=== PATIENT | male | born 1930 | race Caucasian/White ===

== ENCOUNTER 2016-11-26 07:50 | Observation (INO) | payer MEDICARE, OTHER ==
[~2016-11-26] VITALS: Ht 175.3 cm; Wt 98.3 kg
--- NOTE | ~2016-11-26 | ER ---
PATIENT'S NAME: UNA QUACH [facility] AGE: 86 Y [address] ROOM: [place] [address] LOCATION: G3 ADMIT DATE: 11/26/2016 ER/Outpatient Report DISCHARGE DATE: FAMILY PHYSICIAN: Krystina Bar MD ATTENDING PHYSICIAN: Aaron Dueñas Time of Arrival: 0750 hours. Time of Evaluation: 0803 hours. IDENTIFICATION: An 86-year-old male. CHIEF COMPLAINT: Right foot pain. HISTORY OF PRESENT ILLNESS: The patient is an 86-year-old male, who tripped over a curb yesterday injuring his right foot. He scraped his right elbow but sustained no other injuries. He did not hit his head. No loss of consciousness. No back or neck pain other than his usual chronic neck pain. No other problems or concerns. He was not lightheaded or dizzy. This was not a syncopal episode. ALLERGIES: NO KNOWN DRUG ALLERGIES. CURRENT MEDICATIONS: 1. Furosemide 40 mg daily. 2. Lisinopril 20 mg daily. 3. Potassium 10 mEq 2 b.i.d. 4. Levothyroxine 200 mcg daily. 5. Rosuvastatin 20 mg daily. 6. Warfarin 2.5 mg 6 days a week, one full tablet on Tuesday, Tuesday, Tuesday, Tuesday; half a tablet on Tuesday, Tuesday, . 7. Metoprolol 50 mg half tablet daily. 8. Finasteride 5 mg daily. 9. Omeprazole 20 mg daily. 10. Metolazone 5 mg on Tuesday, Tuesday, Tuesday. 11. Allopurinol 300 mg daily. 12. Ambien 5 mg at h.s. 13. Melatonin 10 mg 2 equate pain pills. 14. Tramadol as needed. 15. Hydrocodone as needed. MEDICAL PROBLEMS: History of diverticulitis; chronic atrial fibrillation, on chronic PATIENT'S NAME: UNA QUACH [facility] AGE: 86 Y [address] ROOM: [place] [address] LOCATION: [facility] ADMIT DATE: 11/26/2016 ER/Outpatient Report DISCHARGE DATE: FAMILY PHYSICIAN: Krystina Bar MD ATTENDING PHYSICIAN: Aaron Dueñas anticoagulation; coronary artery disease; congestive diastolic heart failure; cataract; gastroesophageal reflux disease; hypertension; hypothyroidism; macular degeneration; chronic kidney disease, left leg neuropathy, and possible sleep apnea. PRIOR SURGERIES: Colonoscopy; CABG; EGD; heart catheterization; laparoscopic cholecystectomy. SOCIAL HISTORY: The patient is . Lives here in [place]. He is retired. Tobacco use, denies. Alcohol use, denies. Drug use, denies. REVIEW OF SYSTEMS: All systems reviewed and negative other than what is noted in the HPI. PHYSICAL EXAMINATION: VITAL SIGNS: Height 5 feet 9 inches, weight 97.7 kg, blood pressure 134/76, pulse 84, respirations 18, temperature 97.2, and saturations 95% on room air. GENERAL: An 86-year-old male, in mild distress. HEENT: Unremarkable. LUNGS: Clear to auscultation. Breath sounds are equal. HEART: Regular rate and rhythm. ABDOMEN: Soft, nondistended, nontender. SKIN: [place], warm, and dry. No lesions or rashes noted. NEURO: No focal deficit. The patient has right pedal edema. He has no bruising or ecchymosis. He has a good distal pulses. Sensation is intact to light touch. He is tender to palpation over the metatarsals. No bony tenderness of his ankle or tib-fib. No knee pain or injury. He has a superficial abrasion on his right elbow. Left lower extremity, no bony tenderness. He is neurovascularly intact and good distal pulses. LABORATORY DATA AND X-RAYS: X-ray of his right ankle, no fracture or dislocation. Pending Radiology over- read. X-ray of his right foot reveals intra-articular fractures of the base of the second and fourth metatarsal, possibly the third metatarsal, and widening of the space between the first and second metatarsal suggestive of Lisfranc joint injury. Right tib-fib x-ray negative for acute fracture or dislocation. INR 3.27. CBC: Otherwise negative. Chemistry panel unremarkable for acute findings. IMPRESSION AND PLAN: 1. Right foot fractures with Lisfranc injury. 2. Chronic anticoagulation. 3. History of atrial fibrillation. a. I discussed this with Dr. Florez. A CAM boot was recommended. The PATIENT'S NAME: UNA QUACH [facility] AGE: 86 Y [address] ROOM: [address] [place], [place] [address] LOCATION: [facility] ADMIT DATE: 11/26/2016 ER/Outpatient Report DISCHARGE DATE: FAMILY PHYSICIAN: Krystina Bar MD ATTENDING PHYSICIAN: Aaron Dueñas A patient was placed in this. His son-in-law does not feel that he can manage at home with the weightbearing restrictions that Dr. Florez has outlined for toe-touch preferably no more than 50% at most max. He had trouble even using his walker today and getting here, so he will be admitted per [facility]. Dr. Dueñas is on-call for Dr. Bar with Dr. Florez providing consultation. 4. Right elbow abrasion. 5. History of right forearm staph infection. Currently using topical peroxide, bacitracin and Hibiclens per his daughter. 6. Coronary artery disease. 7. Hypothyroid. 8. All other medical problems per the past medical history. LEI POLK MD CAR/modl /[id number] d: 11/26/16 2244 t: 11/30/16 0912, OUTPATIENT REPORT
--- NOTE | ~2016-11-26 | CON ---
PATIENT'S NAME: UNA QUACH [facility] AGE: 86 Y [address] ROOM: [place] [address] LOCATION: G3N ADMIT DATE: 11/26/2016 Consultation DISCHARGE DATE: FAMILY PHYSICIAN: Krystina Bar MD ATTENDING PHYSICIAN: Aaron Dueñas DATE OF CONSULTATION: 11/26/2016 REFERRING PHYSICIAN: NELLIE MURRAY MD HISTORY OF PRESENT ILLNESS: Mr. Quach is an 86-year-old male who presented to the [facility] Emergency Room this morning with a chief complaint of right foot pain after he had tripped and fallen yesterday evening in his garage. He was able to bear weight after the incident, but he awoke this morning with persistent and progressive right foot pain and swelling. He localizes this to the mid foot. Pain is aggravated by activity and alleviated by rest. He denies associated numbness or paresthesias. SOCIAL HISTORY: The patient is well known to me based upon the fact that I cared for his . His has subsequently . He lives alone. Nonsmoker. MEDICATIONS ON ADMISSION: 1. Lasix. 2. Lisinopril. 3. Potassium supplement. 4. Levothyroxine. 5. Metoprolol. 6. Omeprazole. 7. Ambien. 8. Tylenol. 9. Tramadol. ALLERGIES: NO KNOWN DRUG ALLERGIES. PHYSICAL EXAMINATION: GENERAL: Alert, well-hydrated, well-nourished, pleasant, cooperative gentleman, who is in no distress. EXTREMITIES: He is wearing a CAM boot on the foot (as per my verbal orders after reviewing his radiographs when he was seen in the emergency room earlier today). The CAM boot is removed. Skin is intact throughout the right lower extremity. There is no calf swelling or tenderness. There is no swelling, tenderness, or deformity at the right knee or right nelson or right ankle. There is moderate swelling and significant focal tenderness throughout the PATIENT'S NAME: UNA QUACH [facility] AGE: 86 Y [address] ROOM: [place] [address] LOCATION: N ADMIT DATE: 11/26/2016 Consultation DISCHARGE DATE: FAMILY PHYSICIAN: Krystina Bar MD ATTENDING PHYSICIAN: Aaron Dueñas right mid foot. Skin is intact throughout the foot. Sensation to light touch is intact throughout the foot. 1+ dorsalis pedis pulse. RADIOGRAPHS: Three views of the right ankle demonstrate no fracture, no malalignment, no hardware, and no joint space narrowing. Right foot three view radiographic series demonstrate fractures at the base of the second and fourth metatarsals. There is no significant subluxation at the Lisfranc joints. The fractures at the bases of the second and fourth metatarsals appear minimally displaced. AP and lateral radiographs of the right tibia and fibula demonstrate mild joint space narrowing of the medial compartment of the knee. No fractures of the tibia or fibula noted. IMPRESSION: Multiple fractures at the bases of the right foot metatarsals (second, fourth, and probably the third also). No significant displacement thereof (minimally displaced Lisfranc fracture without significant subluxation). RECOMMENDATIONS: Immobilization in a CAM boot and abstinence of bearing full weight. I have cleared him for toe-touch weightbearing, but he should not bear weight through pain. Based upon the fact that he lives alone, I do not feel it is safe for him to return home. He is at risk for falling. Furthermore, he has demonstrated reluctance to comply with the recommended weightbearing restrictions. I have informed the patient that the injury carries a significant risk of developing posttraumatic arthritis (particularly it is not protected adequately to ensure maintenance of optimal alignment). No surgery is recommended presently. I have recommended the discharge planners see him for placement in a [facility] facility. MD EUNICE BRANCH/flaco /[id number] PATIENT'S NAME: UNA QUACH [facility] AGE: 86 Y [address] ROOM: [id number] [place], [place] [address] LOCATION: [facility] ADMIT DATE: 11/26/2016 Consultation DISCHARGE DATE: FAMILY PHYSICIAN: Krystina Bar MD ATTENDING PHYSICIAN: Aaron Dueñas CC: Aaron Dueñas MD d: 11/26/161999 t: 12/10/16 0750, CONSULTATION REPORT
--- NOTE | ~2016-11-26 | HP ---
PATIENT'S NAME: UNA QUACH [facility] AGE: 86 Y [address] ROOM: [place] [address] LOCATION: [facility] ADMIT DATE: 11/26/2016 History & Physical DISCHARGE DATE: 11/29/2016 FAMILY PHYSICIAN: Krystina Bar MD ATTENDING PHYSICIAN: Audi Dueñas DATE OF SERVICE: HISTORY OF PRESENT ILLNESS: This 86-year-old male tripped over a curb yesterday injuring his right foot, he has scraped his elbow, but really did not his head or sustained any other injuries. He denies any loss of consciousness. His workup in the emergency room was found to have a right foot fractures of the 2nd and 4th metatarsals and possibly the 3rd as well as the Lisfranc joint injury. He has a history of atrial fibrillation, is on Coumadin, but has not sustained any other issues. It is not felt that he was safe to be at home at this time; so, will be admitted for further observation. PAST MEDICAL HISTORY: Significant for heart failure with preserved ejection fraction, coronary artery disease, GERD, hypertension, hypothyroidism, macular degeneration, and chronic atrial fibrillation. PRIOR SURGERIES: He had a colonoscopy, CABG, EGD, heart catheterization, and lap vick. SOCIAL HISTORY: He is a former smoker. Uses seatbelt. Lives at home by himself. He was formerly in the [employer]. FAMILY HISTORY: Unremarkable. REVIEW OF SYSTEMS: Denies any chest pain, pressure, shortness of breath, orthopnea, or PND. PHYSICAL EXAMINATION: GENERAL: The patient is nontoxic-appearing male in no acute distress. VITAL SIGNS: His height is 5 feet, 9 inches, weight 97.7 kg, blood pressure 134/76, pulse 84, respirations 18, temperature 97.2, and O2 saturation 95% on room air. HEENT: Head: Normocephalic, atraumatic. Ears: TMs are clear and intact bilaterally. Nose patent. Throat clear. NECK: Supple without lymphadenopathy, JVD, thyromegaly, or bruits. HEART: Regular rate and rhythm without audible murmur. PATIENT'S NAME: UNA QUACH [facility] AGE: 86 Y [address] ROOM: [place] [address] LOCATION: [facility] ADMIT DATE: 11/26/2016 History & Physical DISCHARGE DATE: 11/29/2016 FAMILY PHYSICIAN: Krystina Bar MD ATTENDING PHYSICIAN: Audi Dueñas LUNGS: Clear to auscultation bilaterally with normal respiratory effort. ABDOMEN: Soft, nontender, nondistended. Bowel sounds are positive. There is no hepatosplenomegaly. No guarding or rebound. EXTREMITIES: Does have some right pedal edema. His pulses are intact. NEURO: No focal deficits. ASSESSMENT: 1. Right foot fractures with Lisfranc injury. 2. Chronic anticoagulation. 3. History of atrial fibrillation. 4. Coronary artery disease. 5. Hypothyroidism. 6. Gastroesophageal reflux disease. 7. Chronic heart failure with preserved ejection fraction. PLAN: He is not a candidate to be at home by himself. He has been seen by Dr. Florez who recommends toe-touch weightbearing only. He will need to transition to a jail facility at some point. Dr. Florez will be consulted as well. His other medical issues are currently doing well at this point. AUDI DUEÑAS MD TAB/modl /[id number] D: 017 T: 826 HISTORY & PHYSICAL
--- NOTE | ~2016-11-26 | DS ---
PATIENT'S NAME: UNA QUACH [facility] AGE: 86 Y [address] ROOM: [address] [address] LOCATION: G3N ADMIT DATE: 11/26/2016 Discharge Summary DISCHARGE DATE: 11/29/2016 FAMILY PHYSICIAN: Krystina Bar MD ATTENDING PHYSICIAN: Aaron Dueñas PRINCIPAL DIAGNOSES: 1. Multiple fractures of the right foot including the 2nd and 4th metatarsals, likely the 3rd metatarsal and a Lisfranc of the midfoot. 2. Coronary artery disease. 3. Congestive heart failure, chronic, stable. 4. Chronic atrial fibrillation. 5. Hypertension. 6. Chronic anticoagulation. 7. Chronic constipation. 8. Hypertension. 9. Chronic insomnia. 10. Macular degeneration. SUMMARY: Una is an 86-year-old gentleman, who was admitted for foot pain after a fall and injury. He was found to have multiple fractures of the right foot. Orthopedics were consulted. They recommended a CAM boot and not bearing full weight, only touchdown weight. He is not physically strong enough to get around without assistance. We had PT and OT work with him. Care Management was seeing him. He remained medically stable throughout his hospital stay. He went to [facility] on 11/29/2016. He was initially admitted as an inpatient and then changed to observation as he did not meet inpatient criteria. DISMISSAL: Una is dismissed in improved condition on 11/29/2016 being transferred to [facility]. DISMISSAL MEDICATIONS: 1. Zyloprim 300 mg at h.s. for gout. 2. Colace 100 mg b.i.d. for constipation. 3. Fiber Laxative 500 mg b.i.d. for constipation. 4. Proscar 5 mg daily for BPH. 5. Lasix 40 mg daily for CHF. 6. Hydrogen peroxide to the right arm wounds twice daily and cover with mupirocin ointment until healed. 7. Levothyroxine 200 mcg on Tuesday, Tuesday, , Tuesday, and Tuesday mornings for hypothyroidism. 8. Lisinopril 20 mg daily for hypertension and CHF. 9. Melatonin 10 mg h.s. for insomnia. 10. Zaroxolyn 5 mg 3 days a week on Tuesday, Tuesday, and Tuesday. PATIENT'S NAME: UNA QUACH [facility] AGE: 86 Y [address] ROOM: [address] [address] LOCATION: [facility] ADMIT DATE: 11/26/2016 Discharge Summary DISCHARGE DATE: 11/29/2016 FAMILY PHYSICIAN: Krystina Bar MD ATTENDING PHYSICIAN: Aaron Dueñas 11. Lopressor 25 mg b.i.d. for hypertension, coronary disease, and CHF. 12. Multivitamin daily. 13. Omeprazole 20 mg daily for GERD. 14. Potassium 20 mEq b.i.d. for hypokalemia. 15. Crestor 20 mg daily for hyperlipidemia. 16. Coumadin 2.5 mg 6 days of the week Tuesday through Tuesday. 17. Acetaminophen ER 650 mg at h.s. for pain. 18. Tramadol 50 mg q.i.d. p.r.n. pain. 19. Zolpidem 5 mg at h.s. p.r.n. insomnia. 20. PreserVision Lutein Soft Gel 2 capsules every night. 21. Vitamin D 1000 International Units daily for fracture prevention. 22. Calcium plus D 1 tablet at h.s. 23. Fish oil 1000 mg daily. 24. B12 a 1000 mcg p.o. daily for B12 deficiency. The [place] was discontinued as it was not effective, and he has side effects with that. FOLLOWUP: He will follow up in [address] Florez and 2 weeks with me. He will need his next pro-time in 1 week. His INR on admit was slightly elevated, and on dismissal it was therapeutic. Prognosis is good. He is to be only toe touching with right foot or nonweightbearing. They are going to keep him in a CAM boot at all times and also use a walker. We will have PT and OT follow as well. PROGNOSIS: Good. MD MICHAELA WILLS/flaco /[id number] d: 12/02/16 0341 t: 12/04/16 0833, DISCHARGE SUMMARY
[~2016-11-26 07:50] MED LIST: ARTHRITIS PAIN650 MG PO; ASPIRIN EC81 MG PO; AUGMENTIN875 MG PO; BENADRYL50 MG PO; CALCIUM 600 +1 EAC6 PO; COLACE100 MG PO; COUMADIN **IA2.5 MG PO; COUMADIN2.5 MG PO; CRESTOR40 MG PO; FIBER LAXATIVE500 MG PO; FISH OIL 1,0001 EAC5 PO; FLORASTOR250 MG PO; K-TAB 10MEQ10 MEQ PO; LASIX40 MG PO; LEVOTHROID (S200 MCG PO; LOPRESSOR50 M1 PO; MELATONIN10 M2 PO; MOVE FREE ULTRA PO; NORCO 5-325 TA1 EACH PO; PRESERVISION L1 EACH PO; PREVACID PO; PRILOSEC20 MG PO; PRINIVIL20 MG PO; PROSCAR5 MG PO; THERA-VITE W/ B1 TAB PO; ULTRAM50 MG PO; VITAMIN B-121000 MCG PO; VITAMIN D1000 UNI1 PO; ZAROXOLYN5 MG PO; ZETIA10 MG PO; ZYLOPRIM300 MG PO
[2016-11-26 10:45] LABS: BASOPHIL # 0.1 K/uL (0.0-0.2); BASOPHIL % 0.7 %; EOSINOPHIL # 0.1 K/uL (0.0-0.5); EOSINOPHIL % 1.6 %; HEMATOCRIT 40.5 % (33.0-50.0); HEMOGLOBIN 13.6 g/dL (11.0-16.0); IMMATURE GRANULOCYTE % 0.4 %; LYMPHOCYTE # 1.4 K/uL (0.8-4.0); MCH 32.7 pg (27.0-34.0); MCHC 33.6 gm/dL (32.0-36.5); MCV 97.4 fl (83.0-98.0); MONOCYTE # 0.8 K/uL (0.0-1.0); MONOCYTE % 12.5 %; MPV 10.1 fl (9.4-12.4); NEUTROPHIL # (ANC) 4.3 K/uL (1.4-9.0); NEUTROPHIL % 63.8 %; NRBC % 0 /100WBC (0-0.00); PLATELET COUNT 135 K/uL (150-450); RBC 4.16 M/uL (3.50-5.50); RDW-CV 13.6 % (11.9-14.6); WBC 6.7 K/uL (4.0-11.0)
[2016-11-26 10:54] LABS: INR - (THERAPEUTIC) 3.27 (0.92-1.07); PROTIME 34.8 SECONDS (9.8-11.4); PTT 40 SECONDS (25-32)
[2016-11-26 11:03] LABS: ALBUMIN 3.1 gm/dL (3.5-5.0); ANION GAP 8.7 (10.0-19.0); CALCIUM 8.8 mg/dL (8.5-10.5); CREATININE 1.2 mg/dL (0.6-1.3); POTASSIUM 3.7 mMol/L (3.7-5.1); TOTAL BILIRUBIN 0.6 mg/dL (0.0-1.5); TOTAL PROTEIN 6.8 g/dL (6.0-8.4)
--- NOTE | 2016-11-26 12:40 | NUR ---
Got called from 3N to see patient about discharge planning today. 1345 Introduced self/role to patient and his friends. He would like to rehab at [facility]. Currently inpatient status but this will be reviewed so did not go over financial pieces. Called Yazmin with [facility] and left a message. Faxed face sheet as that is all that was done for patient yet as far as what is needed for a referral.
--- NOTE | 2016-11-26 14:34 | NUR ---
patient is 86 yo male admitted this afternoon for a fractured right foot that he sustained last evening as he was getting out of his car. states he got caught and tripped. had his son bring him to the ER this morning. patient lives in [place] by himself. saline lock is noted in left hand without erythema or edema noted at the sit. education is given as documented. patient denies questions. call light is within reach. patient denies needs at this time. report is given to HUMA Alberts.
--- NOTE | 2016-11-26 19:11 | NUR ---
Significant Event:ADMIT. VSS. Tylenol extra strength given for pain. right foot boot intact. CSM adequate. SLIV to left wrist. NWB ON right leg.
[2016-11-26] MEDS ORDERED: BACTROBAN N1 GM/TUBE TOP (19:26)
[2016-11-26] MEDS ORDERED: AMBIEN5 MG PO (19:28)
[2016-11-26] MEDS ORDERED: CRESTOR20 MG PO (19:29)
--- NOTE | 2016-11-27 04:01 | NUR ---
Significant Event: A/O X 3. IV SALINE LOCK INTACT. CAM-BOOT ON RIGHT FOOT. ELEVATED. DANGLE-SAT AT EDGE OF BED. REPOSITIONS SELF. VOIDS PER URINAL. BP EARLIER SHIFT 132/83. LATER HYPOTENSIVE BP 97/57, 99/64. TAKES FLUIDS, NO NAUSEA. DENIES NUMBNESS=TINGLING TO LOWER EXTREMITIES. PNEUMATIC ON LEFT LEG. TOE-TOUCH RIGHT FOOT, CAM-BOOT ON. Follow up:
[2016-11-27 09:54] LABS: INR - (THERAPEUTIC) 2.96 (0.92-1.07); PROTIME 31.4 SECONDS (9.8-11.4)
--- NOTE | 2016-11-27 16:32 | NUR ---
Significant Event: Pt is a/o. Sat in chair. TTWB. CAM boot on @ all times. Has difficulty amb to BR and back to chair, tires easily. Have been pushing in chair to BR door and then he walks with walker/gaitbelt 1 assist to toilet and back to chair in BR doorway. Also will void per urinal. CSM WNL. Follow up:
--- NOTE | 2016-11-28 03:48 | NUR ---
VSS. Pt up w/ one assist, Fatigues easily. TTWB to right foot. Pain controlled with ultram and tylenol. Pt states [place] makes him "loopy". CAM Boot on at all times. 2+ edema on right foot. CSM's intact.
--- NOTE | 2016-11-28 17:11 | NUR ---
Significant Event: Pt is a/o. cooperative with cares. Has sat up in chair, voids per urinal. Tires easily. If needs to go to BR does better if push him in chair to BR door and then use walker to toilet. CAM boot on @ all times. Working on placement. TTWB. Follow up:
--- NOTE | 2016-11-29 04:34 | NUR ---
Significant Event: CAM boot on at all times. CSM WNL. Ultram at 0112. On room air. TTWB. If needing to go to the bathroom push patient to the bathroom door and have him use the walker to the toilet. Prune juice given. Clean R) arm wound twice a day. Follow up:
--- NOTE | 2016-11-29 09:20 | NUR ---
Faxed referral information to [facility]. 0935 called Jessica with UR to clarify OBS vs Inpatient. Will send to [facility]. 1220 Patient is OBS per UR. 1235 Yazmin with [facility] and myself went and visited with patient about OBS. Determined he still needed to go to SNF and had the funds to pay for the care. Called patients daughter Melissa, made aware of OBS status and that patient would be self pay at [facility]. Agreed he still needed to go. Does have a snf care policy they will look into. [address] Bar about getting orders completed. Spoke to Yazmin, will plan for pickup after 1400 but awaiting call from [facility]. 1340 Called Yazmin, still not time for pickup. 1430 they will be here. Updated Charge Neida, patient and his son. No further questions or needs. Faxed orders. PASRR in packet.
--- NOTE | 2016-11-29 14:26 | NUR ---
PT ALERT AND ORIENTED. UP WITH 1 ASSIST TO THE BATHROOM. USE CHAIR TO GET HIM IN THE BATHROOM THEN TRANSFERS WITH WALKER TO THE TOILET. VOIDS PER URINAL. TRAMADOL FOR PAIN THIS AM AT 0745. CAM BOOT TO RT FOOT TOE TOUCH WEIGHT BEARING. SMALL AREA ON RT FOREARM WHERE A CANCER WAS REMOVED IS BEING TREATED WITH A HYDROGEN PEROXIDE WASH. .
--- NOTE | 2016-11-29 15:53 | NUR ---
PT TRASFERED TO [facility]
== END 2016-11-29 15:02 ==
LOC: GACC 07:50 → G3N 11:35
PROVIDERS: Family Medicine; ADMIT Family Medicine
DX: S92.321A Displaced fracture of second metatarsal bone, right foot, initial encounter for closed fracture (principal); S92.351A Displaced fracture of fifth metatarsal bone, right foot, initial encounter for closed fracture; W19.XXXA Unspecified fall, initial encounter; I25.10 Atherosclerotic heart disease of native coronary artery without angina pectoris; I13.0 Hypertensive heart and chronic kidney disease with heart failure and stage 1 through stage 4 chronic kidney disease, or unspecified chronic kidney disease; I50.30 Unspecified diastolic (congestive) heart failure; N18.9 Chronic kidney disease, unspecified; K59.09 Other constipation; E03.9 Hypothyroidism, unspecified; F51.04 Psychophysiologic insomnia; H35.30 Unspecified macular degeneration; K21.9 Gastro-esophageal reflux disease without esophagitis; Z79.899 Other long term (current) drug therapy; Z79.891 Long term (current) use of opiate analgesic; Z79.01 Long term (current) use of anticoagulants; Z90.49 Acquired absence of other specified parts of digestive tract; Z95.1 Presence of aortocoronary bypass graft
CPT/HCPCS: G0378; G8978; G8979; G8987; G8988; G8989; G8997; G8998

== ENCOUNTER → 2016-12-06 | Outpatient (CLI) | payer MEDICARE, OTHER ==
[~2016-12-06] MED LIST changes: +AMBIEN5 MG PO; +BACTROBAN N1 GM/TUBE TOP; +CRESTOR20 MG PO
[2016-12-06 07:38] LABS: INR - (THERAPEUTIC) 4.67 (0.92-1.07); PROTIME 49.8 SECONDS (9.8-11.4)
== END ==
LOC: LJOHN2 07:17
PROVIDERS: Family Medicine
DX: I48.91 Unspecified atrial fibrillation (principal); I10 Essential (primary) hypertension

== ENCOUNTER → 2016-12-09 | Outpatient (CLI) | payer MEDICARE, OTHER ==
[2016-12-09 08:30] LABS: INR - (THERAPEUTIC) 2.25 (0.92-1.07); PROTIME 23.8 SECONDS (9.8-11.4)
== END ==
LOC: LJOHN2 08:07
PROVIDERS: Family Medicine
DX: I48.91 Unspecified atrial fibrillation (principal)

== ENCOUNTER → 2017-01-04 | Outpatient (CLI) | payer MEDICARE, OTHER ==
[2017-01-04 10:29] LABS: INR - (THERAPEUTIC) 1.65 (0.92-1.07); PROTIME 17.4 SECONDS (9.8-11.4)
== END ==
LOC: LJOHN2 07:30
PROVIDERS: Family Medicine
DX: I48.91 Unspecified atrial fibrillation (principal)

== ENCOUNTER → 2017-01-14 | Outpatient (CLI) | payer MEDICARE, OTHER ==
[2017-01-14 08:42] LABS: INR - (THERAPEUTIC) 2.58 (0.92-1.07); PROTIME 27.4 SECONDS (9.8-11.4)
== END ==
LOC: LJOHN2 08:09
PROVIDERS: Family Medicine
DX: I48.91 Unspecified atrial fibrillation (principal)